=== PATIENT | male | born 1980 | race Caucasian/White ===

== ENCOUNTER 2017-12-01 08:38 | Emergency (ER) | payer BC ==
[2017-12-01 09:11] VITALS: BP 110/75
--- NOTE | 2017-12-01 10:21 | UC ---
Throat Pain/Nasal Benjamin HPI - HPI Summary HPI Summary: Pt presents with sore throat for the last 2 days. He tells me that over the last 3 weeks he has had a sore throat on and off. Has had strep in the past multiple times and this feels the same. Says that a co-worker recently was diagnosed with strep. He has not taken anything OTC. Denies fever, chills, cough , SOB, chest pain, abdominal pin, n/v/d/c. - History of Current Complaint Chief Complaint: UCGeneralIllness Stated Complaint: SORE THROAT Time Seen by Provider: 12/01/17 10:21 Hx Obtained From: Patient Onset/Duration: Gradual Onset Severity: Moderate Pain Intensity: 6 Pain Scale Used: 0-10 Numeric - Allergies/Home Medications Allergies/Adverse Reactions: Allergies Allergy/AdvReac Type Severity Reaction Status Date / Time No Known Allergies Allergy Verified 12/01/17 09:11 PMH/Surg Hx/FS Hx/Imm Hx Previously Healthy: Yes - Surgical History Surgical History: None Surgery Procedure, Year, and Place: denies - Family History Known Family History: Positive: None - Social History Occupation: Employed Full-time Lives: With Family Alcohol Use: Occasionally Substance Use Type: None Smoking Status (MU): Never Smoked Tobacco - Immunization History Most Recent Tetanus Shot: UTD Review of Systems Constitutional: Negative Skin: Negative Eyes: Negative ENT: Sore Throat Respiratory: Negative Cardiovascular: Negative Gastrointestinal: Negative Neurological: Negative Psychological: Negative All Other Systems Reviewed And Are Negative: Yes Physical Exam Triage Information Reviewed: Yes Appearance: Well-Appearing, No Pain Distress, Well-Nourished Vital Signs: Initial Vital Signs Temp 97.8 F 12/01/17 09:07 Pulse 59 12/01/17 09:07 Resp 20 12/01/17 09:07 BP 110/75 12/01/17 09:07 Pulse Ox 100 12/01/17 09:07 Vital Signs Reviewed: Yes Eyes: Positive: Conjunctiva Clear. Negative: Conjunctiva Inflamed, Discharge ENT: Positive: Hearing grossly normal, Pharyngeal erythema, TMs normal, Uvula midline. Negative: Nasal congestion, Nasal drainage, TM bulging, TM dull, TM red, Tonsillar swelling, Tonsillar exudate, Muffled voice, Hoarse voice, Sinus tenderness Neck: Positive: Supple, Nontender, No Lymphadenopathy Respiratory: Positive: Lungs clear, Normal breath sounds, No respiratory distress, No accessory muscle use Cardiovascular: Positive: RRR, No Murmur, Pulses Normal Neurological: Positive: Alert Psychological: Positive: Age Appropriate Behavior Skin: Negative: rashes Throat Pain/Nasal Course/Dx - Course Course Of Treatment: POC strep negative. Given his lengths of symptoms and recent exposure - will treat as if strep. He is also requesting treatment - Differential Dx/Diagnosis Provider Diagnoses: Pharyngitis Discharge - Discharge Plan Condition: Stable Disposition: HOME Prescriptions: Amoxicillin PO (*) [Amoxicillin 500 MG CAP*] 500 mg PO Q12H #14 cap Patient Education Materials: Pharyngitis (ED) Referrals: Kacey NATH,Peter Jordan [Primary Care Provider] - Additional Instructions: If you develop a fever, shortness of breath, chest pain, new or worsening symptoms - please call your PCP or go to the ED.
== END 2017-12-01 10:34 | disposition home or self-care (01) ==
LOC: UCEAST 08:38
DX: J02.9 Acute pharyngitis, unspecified (principal)
CPT/HCPCS: 87651; 99212; G0463

== ENCOUNTER 2018-02-08 11:06 | Emergency (ER) | payer BC ==
[2018-02-08 13:35] VITALS: BP 95/63
--- NOTE | 2018-02-08 13:50 | UC ---
Respiratory Complaint HPI - HPI Summary HPI Summary: sinus pain cough congestion fevers feeling worse over past 7-10 days - History of Current Complaint Hx Obtained From: Patient Onset/Duration: Gradual Onset, Lasting Weeks - 2 Timing: Constant Severity Initially: Moderate Severity Currently: Moderate Pain Intensity: 6 Pain Scale Used: 0-10 Numeric Character: Cough: Nonproductive Aggravating Factors: Nothing Alleviating Factors: Nothing Associated Signs And Symptoms: Positive: Fever, Nasal Congestion, Sinus Discomfort <Nayana Mckeon - Last Filed: 02/21/18 19:08> <Antonette Ochoa - Last Filed: 02/22/18 07:53> - History of Current Complaint Chief Complaint: UCRespiratory Stated Complaint: COUGH Time Seen by Provider: 02/08/18 13:47 - Allergies/Home Medications Allergies/Adverse Reactions: Allergies Allergy/AdvReac Type Severity Reaction Status Date / Time No Known Allergies Allergy Verified 02/08/18 13:32 PMH/Surg Hx/FS Hx/Imm Hx Previously Healthy: Yes - Surgical History Surgical History: None Surgery Procedure, Year, and Place: denies - Family History Known Family History: Positive: None - Social History Occupation: Employed Full-time Lives: With Family Alcohol Use: Occasionally Substance Use Type: None Smoking Status (MU): Never Smoked Tobacco - Immunization History Most Recent Tetanus Shot: UTD <Nayana Mckeon - Last Filed: 02/21/18 19:08> Review of Systems Constitutional: Fever Skin: Negative Eyes: Negative ENT: Sore Throat, Ear Ache, Nasal Discharge, Sinus Congestion, Sinus Pain/ Tenderness Respiratory: Negative Cardiovascular: Negative Gastrointestinal: Negative Genitourinary: Negative Motor: Negative Neurovascular: Negative Musculoskeletal: Negative Neurological: Negative Psychological: Negative Is Patient Immunocompromised?: No All Other Systems Reviewed And Are Negative: Yes <Nayana Mckeon - Last Filed: 02/21/18 19:08> Physical Exam Triage Information Reviewed: Yes Appearance: Well-Appearing, No Pain Distress, Well-Nourished Vital Signs: Initial Vital Signs Temp 98.2 F 02/08/18 13:32 Pulse 77 02/08/18 13:32 Resp 14 02/08/18 13:32 BP 95/63 02/08/18 13:32 Pulse Ox 97 02/08/18 13:32 Vital Signs Reviewed: Yes Eye Exam: Normal Eyes: Positive: Conjunctiva Clear ENT Exam: Normal ENT: Positive: Normal ENT inspection, Hearing grossly normal, Pharynx normal, Nasal congestion, Nasal drainage, TMs normal, Sinus tenderness, Uvula midline. Negative: Trismus, Muffled voice, Hoarse voice, Dental tenderness Dental Exam: Normal Neck exam: Normal Neck: Positive: Supple, Nontender, No Lymphadenopathy Respiratory Exam: Normal Respiratory: Positive: Chest non-tender, Lungs clear, Normal breath sounds, No respiratory distress, No accessory muscle use Cardiovascular Exam: Normal Cardiovascular: Positive: RRR, No Murmur, Pulses Normal, Brisk Capillary Refill Abdominal Exam: Normal Musculoskeletal Exam: Normal Musculoskeletal: Positive: Strength Intact, ROM Intact, No Edema Neurological Exam: Normal Neurological: Positive: Alert, Muscle Tone Normal Psychological Exam: Normal Skin Exam: Normal <Nayana Mckeon - Last Filed: 02/21/18 19:08> Vital Signs: Initial Vital Signs Temp 98.2 F 02/08/18 13:32 Pulse 77 02/08/18 13:32 Resp 14 02/08/18 13:32 BP 95/63 02/08/18 13:32 Pulse Ox 97 02/08/18 13:32 <Antonette Ochoa - Last Filed: 02/22/18 07:53> Diagnostic Evaluation - Laboratory O2 Sat by Pulse Oximetry: 97 <Nayana Mckeon - Last Filed: 02/21/18 19:08> Respiratory Course/Dx - Course Course Of Treatment: Augmentin, flonase, mucinex d increase fluids follow with pcp prn - Differential Dx/Diagnosis Provider Diagnoses: acute rhinosinusitis <Nayana Mckeon - Last Filed: 02/21/18 19:08> Discharge - Sign-Out/Discharge Documenting (check all that apply): Discharge/Admit/Transfer - Billing Disposition and Condition Condition: STABLE Disposition: HOME <Nayana Mckeon - Last Filed: 02/21/18 19:08> - Billing Disposition and Condition Condition: STABLE Disposition: HOME <Antonette Ochoa - Last Filed: 02/22/18 07:53> - Discharge Plan Condition: Stable Disposition: HOME Prescriptions: Amoxicillin/Clavulanate TAB* [Augmentin TAB 875*] 875 mg PO BID #20 tab Fluticasone NASAL SPRAY 50MCG* [Flonase NASAL SPRAY 50MCG*] 2 spray BOTH NARES DAILY #1 btl Patient Education Materials: Sinusitis (ED), Nasal Rinse (ED), How to Use Nasal Lavina (ED) Referrals: Satish Lambert MD [Primary Care Provider] - If Needed Attestation Statement User Type: Provider - I was available for consult. This patient was seen by the BRYANT. The patient was not presented to, seen by, or examined by me. -Carmen <Antonette Ochoa - Last Filed: 02/22/18 07:53>
== END 2018-02-08 14:10 | disposition home or self-care (01) ==
LOC: UCEAST 11:06
DX: J01.90 Acute sinusitis, unspecified (principal)
CPT/HCPCS: 99212; G0463